=== PATIENT | male | born 1990 | race Two or more races ===

== ENCOUNTER 2018-04-07 16:13 | Emergency (ER) | payer SELFPAY ==
[~2018-04-07] VITALS: Ht 172.7 cm; Wt 87.5 kg
[2018-04-07 16:22] VITALS: BP 125/75
--- NOTE | 2018-04-07 16:47 | Emergency Room Report ---
History of Present Illness General Chief Complaint: General Complaint Source: Patient Present Illness HPI Patient is a 19-year-old male who presents today with complaints of a headache that began 3 days ago. Patient is a history of migraines and states that today' s headache feels similar to previous. He notes associated nausea and vomiting, last episode of emesis was prior to arrival and 3 episodes of emesis today. Slight blurry vision in the left eye. Denies photophobia, fever, chills, neck pain or associated symptoms. Patient has no significant medical problems and denies tobacco, alcohol or drug use. Allergies: Coded Allergies: MORPHINE (Verified Allergy, Unknown, 04/07/18) PENICILLINS (Verified Allergy, Unknown, 04/07/18) Patient History Reviewed Nursing Documentation: PMH: Agreed; PSxH: Agreed Nursing Documentation-PM Past Medical History: No History, Except For History Of Psychiatric Problem: No - PTSD Review of Systems Neurological: Reports: headache All Other Systems: negative except mentioned in HPI Physical Exam Vital Signs Date Time Temp Pulse Resp B/P (MAP) Pulse Ox O2 Delivery O2 Flow Rate FiO2 04/07/18 16:17 97.5 75 18 125/75 96 Room Air Sp02 EP Interpretation: reviewed, normal General Appearance: no apparent distress, alert, GCS 15, non-toxic Head: normocephalic, atraumatic Eyes: bilateral eye normal inspection, bilateral eye PERRL ENT: hearing grossly normal, normal pharynx, no angioedema, normal voice Neck: full range of motion, supple/symm/no masses Respiratory: chest non-tender, lungs clear, normal breath sounds, speaking full sentences Cardiovascular #1: regular rate, rhythm, no edema Cardiovascular #2: 2+ carotid (R), 2+ carotid (L), 2+ radial (R), 2+ radial (L) , 2+ dorsalis pedis (R), 2+ dorsalis pedis (L) Gastrointestinal: normal bowel sounds, non tender, soft, non-distended, no guarding, no rebound Rectal: deferred Genitourinary: normal inspection, no CVA tenderness Musculoskeletal: back normal, gait/station normal, normal range of motion, non- tender, calf tenderness Neurologic: alert, oriented x3, responsive, health and wellness coach III-XII nml as tested, motor strength/tone normal, DTRs symmetric, SLR negative, sensory intact, cerebellar normal, normal gait, speech normal, other - 5 out of 5 strength in bilateral upper and lower extremities, grossly normal Psychiatric: judgement/insight normal, memory normal, mood/affect normal, no suicidal/homicidal ideation Reflexes: 3+ bicep (R), 3+ bicep (L), 3+ tricep (R), 3+ tricep (L), 3+ knee (R) , 3+ knee (L) Skin: normal color, no rash, warm/dry, well hydrated Lymphatic: no adenopathy Medical Decision Making PA Attestation supervising physician is Dr. Rico Reaction to Intervention: Improved Diagnostic Impression: Primary Impression: Headache ER Course Patient presents today with a migraine headache similar to previous migraines. Complaints slight blurry vision in his left eye with no neurologic deficits. Imaging is considered benign indicated at this time. Patient is given Decadron , Toradol, Reglan and Benadryl with resolution of his headache on reevaluation. Patient also states the blurry vision has totally resolved on reevaluation. Repeat neurologic examination is within normal limits as well. Low index of suspicion for intracranial pathology. Discussed case with Dr. Rico who agreed with treatment intervention. Last Vital Signs Date Time Temp Pulse Resp B/P (MAP) Pulse Ox O2 Delivery O2 Flow Rate FiO2 04/07/18 16:22 75 18 Room Air 04/07/18 16:22 97.5 125/75 96 Status: improved Disposition: HOME, SELF-CARE Condition: Stable Scripts Acetamin/Butalbital/Caffeine* (FIORICET*) 1 Ea Tab 1 TAB ORAL Q6H, #15 TAB 0 Refills Prov: Nadine Thompson 04/07/18 Patient Instructions: General Headache Without Cause, [id number] Nadine Thompson Apr 07, 2018 16:46
[2018-04-07] MEDS ORDERED: Ketorolac 30mg Inj IV ONE (17:00)
[2018-04-07] MEDS ORDERED: Metoclopramide 10mg/2ml Inj IVP ONE (17:00)
[2018-04-07] MEDS ORDERED: DiphenhydrAMINE 50mg/ml Inj IVP ONE (17:00)
[2018-04-07] MEDS ORDERED: Dexamethasone 4mg/ml vial IV ONE (17:00)
[2018-04-07] MEDS ORDERED: FIORICET1 EA ORAL (18:12)
[2018-04-07 18:25] VITALS: BP 125/75
== END 2018-04-07 18:26 | disposition home or self-care (01) ==
LOC: EMR 17:25
DX: R51 Headache (principal); Z88.0 Allergy status to penicillin; Z88.5 Allergy status to narcotic agent
CPT/HCPCS: 96374; 96375; 99284; J1100; J1200; J1885; J2765